=== PATIENT | female | born 1975 | race Hispanic/Latino ===

== ENCOUNTER 2017-08-29 06:04 | Inpatient (IN) | payer OTHER ==
[~2017-08-29] VITALS: Ht 152.4 cm; Wt 59.9 kg
[2017-08-29 06:38] VITALS: BP 124/72
--- NOTE | 2017-08-29 08:58 | Operative Report ---
Operative/Inv Procedure Report Surgery Date: 08/29/17 Name of Procedure: Repeat low flap transverse section via Pfannenstiel skin incision Pre-Operative Diagnosis: Insulin-dependent diabetic 3 previous C-sections term advanced maternal age Post-Operative Diagnosis: Same adhesions Estimated Blood Loss: 500 Surgeon/Natural Resource Technician: Gilson WOLF,Silvia Navarro and Dr. Yobany Serra Anesthesia: block Operative/Procedure Note Note: Procedure note patient was taken the operating placed prone position after adequate skin testing for spinal anesthesia patient was placed in dorsolithotomy position the vagina from dorsal fashion the bladder on was catheterized patient was returned spine position on the abdomen was prepped and draped so fashion once again checked. Found to be adequate for surgery through an old Pfannenstiel skin incision skin was cut carried down to rectus fascia which was cut in curvilinear fashion I direction using curved males assisted with Bovie coagulation patient tolerated this well the rectus sheath was dissected bluntly as well as sharply off of the rectus muscle the peritoneum was entered bluntly bluntly low blade the [place] was placed and lower and incision on the bladder flap was scarred down on IV in the lower uterine segment the uterus was nicked I was entered using on Metzenbaums dissected bluntly as well as sharply I at this point the membranes were ruptured the was in the transverse position with the back up on the head to the patient's right eye the head was gently guided into the pelvis for vertex delivery the cord around the neck was not reducible was clamped 2 cut infant was delivered to the abdominal wall after on since removed from the field and the infant was handed to battery tester was waiting delivering to aid in resuscitation placenta was delivered manually noted to be intact was wiped clean with 2 wet dry last insurance free of adherent membranes was oversewn running locking suture was indicated interrupted [id number] is well at this point the on uses injected with intramyometrial Pitocin intravenous Pitocin had been using ear contractility hemostasis was apparent on [place] had been placed over the surgical site to prevent adhesions the rectus muscle was reapproximated using 0 the fascia was reapproximated to continue sutures #1 subcutaneous tissue was Bovie coagulated and irrigated. And the skin was reapproximated mabel at the end the case the counts correct urine was clear on mother and were transferred recovery room awake alert counts correct Findings: Viable male infant transverse backup clear fluid cord around the neck times to not reducible adhesions from the uterine wall to the rectus sheath preventing location of the tubes or ovaries
--- NOTE | 2017-08-29 09:02 | History & Physical Pre-Op ---
General Information and HPI MD Statement: I have seen and personally examined AMELIA GUERRA and documented this H&P. The patient is a 42 year old F who presented with a patient stated chief complaint of 1 to have a baby []. History of Present Illness: 42-year-old 8 para 3043 at 39 weeks gestation insulin-dependent diabetic followed by [facility] with 3 previous sections would like to have permanent sterilization. Patient has been very compliant with care with her nonstress is for ultrasounds and following her insulin. This morning's glucose was 78 patient had taken 6 units of insulin last night and 6 units of insulin this morning Allergies/Medications Allergies: Coded Allergies: NO KNOWN ALLERGIES (NO 08/29/17) Past History Surgical History Pertinent Surgical History: Past Family/Social History Psychosocial History Smoking Status: Never Smoked Review of Systems Review of Systems: Negative as stated in HPI Exam & Diagnostic Data Last 24 Hrs of Vital Signs/I&O Vital Signs Date Time Temp Pulse Resp B/P B/P Pulse O2 O2 Flow FiO2 Mean Ox Delivery Rate 08/29 0638 124/72 Intake & Output 08/29 1600 08/29 0800 08/29 0000 Intake Total Output Total Balance Patient 132 lb Weight Physical Exam: pleasant female looking older than her stated age HEENT anicteric Lungs clear Abdomen soft gravid estimated weight 3000 g Extremities negative edema negative Homans Assessment/Plan Assessment/Plan: Assessment is term with 3 previous sections advanced maternal age insulin-dependent diabetes Plan antibiotics type and cross tubal ligation patient aware the risks and benefits of surgery permanency of tubal ligation and failure rates 1 20/50 that we do As Ranked By This Provider Problem List: 1.
--- NOTE | 2017-08-29 11:51 | Cons- Endocrinology ---
General Information and HPI Consulting Request Date of Consult: 08/29/17 Requested By: Dr. Riggins Reason for Consult: managment of hyperglycemia. 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 She deliveried a healthy baby boy this morning and her FSG was 78. However, she was diagnosed with prediabetes approximately one year ago and was put on metformin 1000 mg twice a day. During , she was on metformin 1000 mg twice a day and NPH 6 units twice a day. As per patient, her glucose levels were controlled. As per nurse, she will be on clear liquid diet for lunch. Most likley she will be on regular diet tonight for dinner. Allergies/Medications Allergies: Coded Allergies: NO KNOWN ALLERGIES (NO 08/29/17) Review of Systems Review of Systems Constitutional: Reports: see HPI. Cardiovascular: Denies: chest pain. Respiratory: Denies: short of breath. Hematologic/Endocrine: Denies: polyuria, polydipsia. Past History Medical History Endocrine: prediabetes Surgical History Surgical History: Psychosocial History Smoking Status: Never Smoked Exam & Diagnostic Data Last 24 Hrs of Vital Signs/I&O Vital Signs Date Time Temp Pulse Resp B/P B/P Pulse O2 O2 Flow FiO2 Mean Ox Delivery Rate 08/29 0638 124/72 Intake & Output 08/29 1600 08/29 0800 08/29 0000 Intake Total Output Total Balance Patient 132 lb Weight Physical Exam General Appearance: no apparent distress Neck: normal inspection Respiratory: normal breath sounds Cardiovascular: regular rate/rhythm Gastrointestinal: s/p Extremities: normal inspection, no edema Assessment/Plan Assessment/Plan 42 y/o female, honduran speaking, was diagnosed with prediabetes approximately one year ago and was put on metformin 1000 mg twice a day. During , she was on metformin 1000 mg twice a day and NPH 6 units twice a day. She was admitted for . She deliveried a healthy baby boy this morning and her FSG was 78. Most likely she will be on regular diet for dinner tonight. Recommend: 1. start metformin 500 mg twice a day with breakfast and with dinner; 2. continue FSGs ac tid and bedtime; 3. check HbA1c. will follow. Consult Acknowledgment - Thank you for your consult request.
[2017-08-30 10:13] LABS: ABSOLUTE BASOPHIL COUNT 0 /CUMM (0.0-0.2); ABSOLUTE EOSINOPHIL COUNT 0.1 /CUMM (0.0-0.7); ABSOLUTE GRANULOCYTE CT 5.6 /CUMM (1.4-6.5); ABSOLUTE LYMPH COUNT 1.2 /CUMM (1.2-3.4); BASOPHIL % 0.2 % (0.0-2.0); MEAN CORPUSCULAR HGB CONC 33.1 G/DL (33.0-37.0); WHITE BLOOD CELL COUNT 7.3 /CUMM (4.8-10.8)
[2017-08-30 10:50] LABS: ABSOLUTE MONOCYTE COUNT 0.3 /CUMM (0.10-0.60); EOSINOPHIL % 1.4 % (0-5); GRANULOCYTE % 77.2 % (42.2-75.2); MEAN CORPUSCULAR HGB 28.7 PG (27.0-31.0); MEAN CORPUSCULAR VOLUME 86.6 FL (81.0-99.0); MEAN PLATELET VOLUME 10.5 FL (7.4-10.4); PLATELET COUNT 145 /CUMM (130-400); RBC DISTRIBUTION WIDTH 17.6 % (11.5-14.5); RED BLOOD CELL CT 2.77 /CUMM (4.20-5.40)
--- NOTE | 2017-08-30 11:30 | PN- Endocrinology ---
Assessment/Plan Endoscopy Assessment: 42 y/o female, bhutanese speaking, was diagnosed with prediabetes approximately one year ago and was put on metformin 1000 mg twice a day. During , she was on metformin 1000 mg twice a day and NPH 6 units twice a day. She was admitted for . She deliveried a healthy baby boy on 08/29/2017. She was put on metformin 500 mg twice a day. Her FSGs were 85 and 75. Her HbA1c 5.4%. Plan: continue metformin 500 mg twice a day for now; monitor FSGs will follow. Subjective Subjective: She feels well this morning. Objective Last 24 Hrs of Vital Signs/I&O Laboratory Tests 08/30 0900 Chemistry Hemoglobin A1c (4.2 - 5.8 %) 5.4 Hematology CBC w Diff NO MAN DIFF REQ WBC (4.8 - 10.8 /CUMM) 7.3 RBC (4.20 - 5.40 /CUMM) 2.77 L Hgb (12.0 - 16.0 G/DL) 7.9 L Hct (37 - 47 %) 24.0 L MCV (81.0 - 99.0 FL) 86.6 MCH (27.0 - 31.0 PG) 28.7 MCHC (33.0 - 37.0 G/DL) 33.1 RDW (11.5 - 14.5 %) 17.6 H Plt Count (130 - 400 /CUMM) 145 MPV (7.4 - 10.4 FL) 10.5 H Gran % (42.2 - 75.2 %) 77.2 H Lymphocytes % (20.5 - 51.1 %) 16.6 L Monocytes % (1.7 - 9.3 %) 4.6 Eosinophils % (0 - 5 %) 1.4 Basophils % (0.0 - 2.0 %) 0.2 Absolute Granulocytes (1.4 - 6.5 /CUMM) 5.6 Absolute Lymphocytes (1.2 - 3.4 /CUMM) 1.2 Absolute Monocytes (0.10 - 0.60 /CUMM) 0.3 Absolute Eosinophils (0.0 - 0.7 /CUMM) 0.1 Absolute Basophils (0.0 - 0.2 /CUMM) 0
--- NOTE | 2017-08-30 12:19 | PN- Post Delivery/GYN ---
Subjective Subjective: NO COMPLAINTS Objective Last 24 Hrs of Vital Signs/I&O PER CHART Physical Exam: PE PETITE HF IN NAD ABD SOFT NT INCISION CDI EXT -EDEMA -HOMANS Assessment/Plan Assessment/Plan ASSESS S/P C/S ANEMIA DM PLOAN ADVANCE DIET AND ADVANCE AMBULATION
--- NOTE | 2017-08-31 09:09 | PN- Post Delivery/GYN ---
Subjective Subjective: C/O -FLATUS Objective Last 24 Hrs of Vital Signs/I&O PER PAPER CHART Physical Exam: PE THIN HF IN NAD ABD SOFT NT INCISION CDI EXT -EDEMA -HOMANS Assessment/Plan Assessment/Plan ASSESS S/P C/S DM ANEMIA ASSYMTOMATIC
--- NOTE | 2017-09-01 08:06 | PN- Diabetes ---
Assessment/Plan Diabetes Assessment: 42 y/o female, singaporean speaking, was diagnosed with prediabetes approximately one year ago and was put on metformin 1000 mg twice a day. During , she was on metformin 1000 mg twice a day and NPH 6 units twice a day. She was admitted for . She deliveried a healthy baby boy on 08/29/2017. She was put on metformin 500 mg twice a day. Her FSGs were between 60 and 140. Her HbA1c 5.4%. Plan: 1. decrease metformin to 500 mg daily with dinner; 2. discharge plan for prediabetes-- metformin 500 mg daily with dinner; 3. f/u with her take off man after discharge. Subjective Subjective: She feels well. Objective Last 24 Hrs of Vital Signs/I&O vital signs stable.
[2017-09-01] MEDS ORDERED: IBUPROFEN800 M1 PO (08:17)
[2017-09-01] MEDS ORDERED: PERCOCET 5-3251 EACH PO (08:17)
[2017-09-01] MEDS ORDERED: GLUCOPHAGE500 M1 PO (08:18)
== END 2017-09-01 12:20 | DRG 540 ==
LOC: GNO 06:04
PROVIDERS: Specialist
PROC: 10D00Z1 Extraction of Products of Conception, Low, Open Approach (ICD-10-PCS; principal; 2017-08-29)
DX: O24.12 Pre-existing type 2 diabetes mellitus, in childbirth (principal); Z3A.39 39 weeks gestation of pregnancy; Z37.0 Single live birth; Z79.4 Long term (current) use of insulin; O69.81X0 Labor and delivery complicated by cord around neck, without compression, not applicable or unspecified; O99.89 Other specified diseases and conditions complicating pregnancy, childbirth and the puerperium; N73.6 Female pelvic peritoneal adhesions (postinfective)
CPT/HCPCS: GNOS; 36415; 81001; 87086; 87147; 88307; J0690; J1050; J1200; J1650; J1885; J2765; J7120